=== PATIENT | female | born 1995 | race Caucasian/White ===

== ENCOUNTER → 2023-11-07 16:01 | Outpatient (CLI) | payer OTHER, SELFPAY ==
--- NOTE | 2023-11-07 16:03 | DI.US.S_ITS ---
PROCEDURE: US OB >= 14 WEEKS FETUS INDICATIONS: anatomy scan OUTSIDE/PRIOR DATING DATA: Last menstrual period (LMP): 06/16/2023. LMP-based estimated date of delivery (MANDA): 03/30/2024. First dating scan (date and location): Unknown. Estimated date of delivery (MANDA) from first dating scan: Unknown. The calculations are made using the clinical MANDA of 03/30/2024. TECHNIQUE: Real-time scanning was performed of the fetus, with image documentation and biometric measurements. COMPARISON: None. FINDINGS: General: A single living intrauterine gestation is present. Presentation: Breech. Placenta: Placental position is posterior , without previa. Amniotic fluid index: 12.0 cm, normal range is 5-24 cm. Single deepest vertical pocket is 4.2 cm. heart rate: 149 beats per minute. Maternal cervical canal: 4.4 cm long. Normal lower limit is 2.5 cm. biometrics: Biparietal diameter: 4.7 cm 20 weeks 0 days Head circumference: 17.3 cm 19 weeks 6 days Abdominal circumference: 15.7 cm 20 weeks 6 days Femur length: 3.2 cm 19 weeks 6 days Clinically estimated gestational age: 19 weeks 3 days Composite gestational age from present scan: 20 weeks 1 day Estimated weight and percentile: 344 g 90th percentile Anatomic survey: Neuro: Ventricles are non-dilated at less than 10 mm. Cisterna magna is normal at 3-11 mm. Cerebellum is normal in size and morphology. Nuchal skin fold: Normal at less than 6 mm between 14-21 weeks gestational age. Face: Nose and lips, facial profile are normal. Spine: No evidence for spina bifida. Heart: 4-chambered heart is present, with normal ventricular outflow tracts. Diaphragm: Diaphragm is intact. Stomach: Left-sided stomach is present. Kidneys: No hydronephrosis. Normal is less than 5 mm in 2nd trimester, less than 7 mm in 3rd trimester. Cord: 3-vessel cord has orthotopic insertion. Bladder: Normal in size. Extremities: All 4 extremities identified. IMPRESSION: Single live intrauterine with gestational age today of 20 weeks 1 day. Anatomy is within normal limits. We strive to produce accurate, complete, and clear reports of imaging services. To assist us in improving patient care, this report was composed using standard report templates and voice recognition software. Therefore, it may contain abnormal punctuation, insertions and/or omissions. Occasional wrong-word or sound-alike substitutions may occur. Though we review the report and make efforts to correct it, we do recommend that the report be read carefully in proper context to recognize any text inaccuracies. Dictated by: Cindy Sol M.D. on 11/08/2023 at 11:38 Approved by: Cindy Sol M.D. on 11/08/2023 at 11:40
== END ==
PROVIDERS: Referring Provider Family Medicine; Visit Provider Family Medicine
DX: Z34.82 Encounter for supervision of other normal pregnancy, second trimester (principal); Z3A.20 20 weeks gestation of pregnancy
CPT/HCPCS: 76811

== ENCOUNTER → 2023-12-24 07:21 | Outpatient (CLI) | payer OTHER, SELFPAY ==
[2023-12-24 10:27] LABS: GTT (PREG) 1 Hour PP 50gm Dose 163 mg/dL (76-139)
== END ==
PROVIDERS: Referring Provider Family Medicine; Visit Provider Family Medicine
DX: Z34.80 Encounter for supervision of other normal pregnancy, unspecified trimester (principal)
CPT/HCPCS: 36415; 82950

== ENCOUNTER → 2023-12-27 07:56 | Outpatient (CLI) | payer OTHER, SELFPAY ==
[2023-12-27 09:16] LABS: Glucose Fasting Gestational 89 mg/dL (76-95)
[2023-12-27 10:53] LABS: Glucose 1 Hour Gest 208 mg/dL (76-180)
[2023-12-27 11:15] LABS: Glucose 2 Hour Gest 160 mg/dL (76-155)
[2023-12-27 11:33] LABS: Glucose Tol Interp,Gestational INTERPRETATION
[2023-12-27 12:29] LABS: Glucose 3 Hour Gest 86 mg/dL (76-140)
== END ==
LOC: LAB 07:58
PROVIDERS: PCP Family Medicine; Referring Provider Family Medicine; Visit Provider Family Medicine
DX: Z34.80 Encounter for supervision of other normal pregnancy, unspecified trimester (principal)
CPT/HCPCS: 36415; 82951; 82952

== ENCOUNTER → 2023-12-31 13:54 | Outpatient (CLI) | payer OTHER, SELFPAY ==
--- NOTE | 2023-12-31 13:59 | DIAB.GDA ---
Initial Gestational Diabetes Assessment Name: Cynthia Booker Date: 12/31/23 Time: 2-3p Dx: Gestational Diabetes Provider: Lachelle MANDA: 03/30/24 Weeks: 27 Cynthia presents for initial GDM visit, accompanied by spouse Harshil. States Harshil does much of the cooking. No PMH of GDM. FH of T2DM with maternal grandmother. Has been checking BG and making diet changes. Reports babies on her 's side of the family are sometimes >9#. Currently measuring on MANDA per report. Diet Recall: 0a: eggs, 2 toast with PB OR 2 protein pancakes, maple syrup, and fruit 10-11a: fruit OR protein shake 12-1p: Leftovers OR 2 slices pizza with salad OR pro shake 3-5p: popcorn or tomatoes 730-8p: protein, veggies and 1-1.5 CHO (rice or potatoes) Beverages: 120oz water, liquid IV Anthropometrics: Ht: 67 Wt: 186# 12/23/23 OB visit Prepregnancy wt: 160# Physical Activity: Walking 5-6 days per week for 2-4 mi wt lifting x 2 days per week Self-Monitoring Blood Glucose: Checking FBG and 1 hour pc. All in goal with exception to 2 elevated pc dinner readings after higher CHO intake. Date Pre Post Pre Post Pre Post HS 12/26 159 12/27 81 101 122 106 12/28 69 139 106 79 12/29 84 105 108 187 12/30 83 104 88 Diabetes Medications: None Pertinent Labs: Screen 163 ; OGTT: 89, 208H, 160H, 86 Nutrition Rx: Carbohydrates: Meal: 45-g lunch and dinner; 30-45g breakfast Snack: 15-30g Nutrition Diagnosis: Altered nutrition related lab value r/t GDM dx aeb recent OGTT Food and nutrition related knowledge deficit r/t newly dx with GDM aeb OGTT and diet recall Intervention: This participant was very receptive. Provided appropriate educational handouts. Discussed the following topics: GDM pathophysiology and impact of hyperglycemia on mom and baby Risk for T2DM for mom and baby in the future Ways to reduce risk T2DM Plate Method, meal timing, carb counting, pairing macronutrients and spreading out CHO for better BG management Blood glucose goals (FBG: <95 and 1 hour <140 mg/dL or 2 hour <120 mg/dl); importance of checking 4x per day (FBG and pc) Impact of macronutrients on blood glucose Recommended servings for carbohydrates at meals and snacks Brainstormed appropriate meal plan based on her food preferences Role of physical activity and following provider guidelines for safety Goals: Pair CHO and protein at meals/snacks Try to keep rice to 1c Follow-up: MARY FLORES follow-up in 2 weeks 1:1 and send BG to RD in 1 week Milady Marie RDN, MARK Certified Diabetes Care and Traffic Control Signaler T: [phone] F: [phone] [email or web address] Thank you for this referral
== END ==
LOC: DIET 13:54
PROVIDERS: PCP Family Medicine; Referring Provider Family Medicine
DX: O24.419 Gestational diabetes mellitus in pregnancy, unspecified control (principal); Z3A.27 27 weeks gestation of pregnancy; Z71.3 Dietary counseling and surveillance
CPT/HCPCS: 97802

== ENCOUNTER 2024-01-07 16:48 | Outpatient (CLI) | payer OTHER, SELFPAY | END 2024-01-07 17:50 | disposition home or self-care (01) | LOC: OB 01-08 09:21 | PROVIDERS: Referring Provider Family Medicine; Visit Provider Family Medicine | DX: O36.8130 Decreased fetal movements, third trimester, not applicable or unspecified (principal); Z3A.28 28 weeks gestation of pregnancy | CPT/HCPCS: 59025; G0378; G0379 ==

== ENCOUNTER → 2024-01-15 14:00 | Outpatient (CLI) | payer OTHER, SELFPAY ==
--- NOTE | 2024-01-23 10:59 | DIAB.GDFU ---
Follow-up Gestational Diabetes Assessment Name: Cynthia Booker Date: 01/15/24 Time: 220-3p Dx: Gestational Diabetes Provider: Lachelle MANDA: 03/30/24 Weeks: 29 Cynthia presents for GDM visit.. Reports overall diet and BG are going well. Some constipation with lower carb/fiber diet. Some days below AMUSEMENT RIDE INSPECTOR for CHO intake for , which is reflected in postprandial readings under 100mg/dl at times. Cynthia has been documenting diet and BG in journal. Reviewed this today. Anthropometrics: Ht: 67 Wt: 187# 01/09/24 OB visit 186# 12/23/23 OB visit Prepregnancy wt: 160# Physical Activity: Walking 5-6 days per week for 1-3 mi. Less wt lifting lately. Self-Monitoring Blood Glucose: Checking FBG and 1 hour pc. All FBG in goal. 3 total elevated pc readings, but most in goal and even lower than ADA recs of pc 1 hour readings 110-140mg/dl. Lower readings seem to correlated with meals <30g CHO. Date Pre Post Pre Post Pre Post HS 01/08 85 125 149 90 01/09 87 72 146 84 01/10 76 154 74 94 01/11 75 128 99 88 01/12 85 120 114 83 01/13 76 97 87 98 01/14 81 93 Diabetes Medications: None Pertinent Labs: Screen 163 ; OGTT: 89, 208H, 160H, 86 Nutrition Rx: Carbohydrates: Meal: 45-g lunch and dinner; 30-45g breakfast Snack: 15-30g Nutrition Diagnosis: Altered nutrition related lab value r/t GDM dx aeb recent OGTT Food and nutrition related knowledge deficit r/t newly dx with GDM aeb OGTT and diet recall - improved/in progress Inadequate CHO intake for r/t avoiding CHO at some meals due to fear of elevations aeb diet journal indicating meals under 30g CHO. Intervention: This participant was very receptive. Provided appropriate educational handouts. Discussed the following topics: Blood glucose goals (FBG: <95 and 1 hour 110-140 mg/dL or 2 hour 100-120 mg/dl per ADA guidelines) Recommended servings for carbohydrates at meals and snacks review Role of physical activity and following provider guidelines for safety Constipation MNT : fiber, fluids and movement Foods higher in fiber Goals: Pair CHO and protein at meals/snacks- met Try to keep rice to 1c- met Aim for Nutrition Rx at meals- new Add berries - new Add nuts and PB to diet for added fiber- new Follow-up: MARY FLORES follow-up in 2 weeks Milady Marie RDN, MARK Certified Diabetes Care and Rack Room Worker T: [phone] F: [phone] [email or web address] Thank you for this referral
== END ==
PROVIDERS: PCP Family Medicine; Referring Provider Family Medicine
DX: O24.419 Gestational diabetes mellitus in pregnancy, unspecified control (principal); Z3A.29 29 weeks gestation of pregnancy; Z71.3 Dietary counseling and surveillance
CPT/HCPCS: 97803

== ENCOUNTER → 2024-01-30 16:10 | Outpatient (CLI) | payer OTHER, SELFPAY ==
--- NOTE | 2024-01-30 17:19 | DIAB.GDFU ---
Follow-up Gestational Diabetes Assessment Name: Cynthia Booker Date: 01/30/24 Time: 410-445p Dx: Gestational Diabetes Provider: Lachelle MANDA: 03/30/24 Weeks: 31 Cynthia presents for GDM visit, accompanied by Harshil. Reviewed her food journal. Some meals still low in CHO, but most improved with added higher fiber CHO. Did have two elevated FBG that she attributes to poor sleep and perhaps stress with family in town. Reports walking, stretching, and getting outside can help with stress for her. Constipation improved with more fiber, though BM still q other day. Endorses adequate water and movement. Adding more high fiber foods. Has low CHO yogurt that could add fruit for additional fiber. Anthropometrics: Ht: 67 Wt: 184# 01/20/24 OB visit 187# 01/09/24 OB visit 186# 12/23/23 OB visit Prepregnancy wt: 160# Physical Activity: Walking 5-6 days per week for 1-2 mi. Self-Monitoring Blood Glucose: Checking FBG and 1 hour pc. 2 elevated FBG after poor sleep per report. One elevated pc reading over the last week after higher CHO intake. One 59mg/dl after meal of just protein shake and cashews. Has questions about when medication would be indicated. Date Pre Post Pre Post Pre Post HS 01/23 69 89 120 150 01/24 97 92 114 116 01/25 90 119 59 94 01/26 102 129 121 138 01/27 85 109 114 138 01/28 89 106 109 2h 99 01/29 87 123 92 Diabetes Medications: None Pertinent Labs: Screen 163 ; OGTT: 89, 208H, 160H, 86 Nutrition Rx: Carbohydrates: Meal: 45-g lunch and dinner; 30-45g breakfast Snack: 15-30g Nutrition Diagnosis: Altered nutrition related lab value r/t GDM dx aeb recent OGTT Food and nutrition related knowledge deficit r/t newly dx with GDM aeb OGTT and diet recall - improved Inadequate CHO intake for r/t avoiding CHO at some meals due to fear of elevations aeb diet journal indicating meals under 30g CHO- improved Intervention: This participant was very receptive. Provided appropriate educational handouts. Discussed the following topics: Review of constipation MNT Sleep impact on FBG When medication might be indicated, if FBG show trends of elevations for example Stress management and impact on BG Goals: Aim for Nutrition Rx at meals- met Add berries - met Add nuts and PB to diet for added fiber- met Work on sleep hygiene- new Add berries to low CHO yogurt- new Message BG in one week- new Follow-up: MARY FLORES follow-up in one week via messaging and 2 weeks in 1:1 Milady Marie RDN, MARK Certified Diabetes Care and Extension Course Coordinator T: [phone] F: [phone] [email or web address] Thank you for this referral
== END ==
LOC: DIET 16:10
PROVIDERS: Referring Provider Family Medicine
DX: O24.419 Gestational diabetes mellitus in pregnancy, unspecified control (principal); Z3A.31 31 weeks gestation of pregnancy; Z71.3 Dietary counseling and surveillance
CPT/HCPCS: 97803

== ENCOUNTER → 2024-02-14 09:58 | Outpatient (CLI) | payer OTHER, SELFPAY ==
--- NOTE | 2024-02-14 10:00 | DIAB.GDFU ---
Follow-up Gestational Diabetes Assessment Name: Cynthia Booker Date: 02/14/24 Time: a Dx: Gestational Diabetes Provider: Lachelle MANDA: 03/30/24 Weeks: 33-34 Cynthia presents for GDM visit virtually using [facility]. OB visit next week on Saturday. Has been working on sleep hygiene. Reduced evening screen time. Adding in short walk after dinner. Stretching at night and added night time routine. Still difficulty staying asleep. Has questions about when insulin may be indicated. Has questions if growth scan plays a role in deciding. Reviewed main indication would be elevated BG, though gestation size and AFV may contribute. May not need insulin therapy at this time, but will continue to monitor. Added berries to diet, as discussed last visit. Choosing whole grains for extra fiber. Constipation improved. BM q other day. Aiming for 30g at B, 45g at lunch and dinner, 15g at snacks. Some meals seem below recs for . Ok to increase snacks to 30g with protein added. Reviewed food journal. Anthropometrics: Ht: 67 Wt: 185# 02/03/24 at OB visit 184# 01/20/24 187# 01/09/24 186# 12/23/23 Prepregnancy wt: 160# Physical Activity: Walking everyday 1-2 mi hill walk or 2-3 flat walk. Self-Monitoring Blood Glucose: Checking FBG and 1 hour pc. Had three slightly elevated FBG last week and one notable above 100 mg/dl this week. May consider HS NPH insulin if FBG continue to increase. FBG elevations seem r/t difficulty with sleep, which is consistent with this stage of . RD/MARK messaged OB provider. She will see her on Saturday for their regular appt. 03/04-03/09: Fastings: 69, 90, 84, 96, 96, 96 mg/dl Date Pre Post Pre Post Pre Post HS 02/07 95 115 96 129 / 84 120 132 129 9/2 86 113 119 133 9/3 82 102 103 164 / 90 95 120 9/5 101 106 133 127 9/6 87 Diabetes Medications: None Pertinent Labs: Screen 163 ; OGTT: 89, 208H, 160H, 86 Nutrition Rx: Carbohydrates: Meal: 45-g lunch and dinner; 30-45g breakfast Snack: 30g Nutrition Diagnosis: Altered nutrition related lab value r/t GDM dx aeb recent OGTT Inadequate CHO intake for r/t avoiding CHO at some meals due to fear of elevations aeb diet journal indicating meals under 30g CHO- improved Intervention: This participant was very receptive. Provided appropriate educational handouts. Discussed the following topics: Reviewed BG trends Discussed indications for insulin, mostly BG trends Role of gestation size and AFV in GDM management Review of nutrition recs during Discussion on sleep hygiene, what she can/cannot control Physical activity plans/progress Constipation MNT review Goals: Work on sleep hygiene- met Add berries to low CHO yogurt- met Message BG in one week- met Aim for 30g CHO at snacks- new Message RD in one week BG - new Follow-up: MARY FLORES follow-up in one week messaging BG and 2 weeks for 1:1 in person. Overall, BG going well. If FBG continue to be elevated would rec consideration for NPH HS (if 3 or more elevated FBG). Will continue to monitor. Messaged OB update on BG this week. Milady Marie RDN, JAVONES Certified Diabetes Care and Medical Physics Teacher T: [phone] F: [phone] [email or web address] Thank you for this referral
== END ==
LOC: DIET 10:00
PROVIDERS: Referring Provider Family Medicine
DX: O24.419 Gestational diabetes mellitus in pregnancy, unspecified control (principal); Z3A.33 33 weeks gestation of pregnancy; Z71.3 Dietary counseling and surveillance
CPT/HCPCS: 97803

== ENCOUNTER → 2024-02-28 08:54 | Outpatient (CLI) | payer OTHER, SELFPAY ==
--- NOTE | 2024-02-28 13:33 | DIAB.GDFU ---
Follow-up Gestational Diabetes Assessment Name: Cynthia Booker Date: 02/28/24 Time: 220-561d Dx: Gestational Diabetes Provider: Lachelle MANDA: 03/30/24 Weeks: 35-36 Cynthia presents for GDM visit virtually using [facility]. OB visit next week on Saturday. US growth appt next week as well. Continues to follow nutrition guidelines. Continues to work on sleep hygiene. States taking sleep aid medication rx'd by OB provider is helpful. Poor sleep seems to directly impact FBG. On FBG mornings when elevated, states those are often nights when she wakes at 3a and difficulty falling back to sleep. Implementing nighttime routine, ie reading, no screens, stretches, and walking earlier in the day. Has increased snacks to 30g as discussed last visit. Feels this gives her more energy during the day. Worried about 1-2 elevations in FBG numbers over the last couple weeks. Anthropometrics: Ht: 67 Wt: 189# 02/17/24 at OB visit 185# 02/03/24 184# 01/20/24 187# 01/09/24 186# 12/23/23 Prepregnancy wt: 160# Physical Activity: Walking everyday 1-2 mi hill walk or 2-3 flat walk. Self-Monitoring Blood Glucose: Checking FBG and 1 hour pc. 07/17 elevated FBG. All pc readings this week were in goal. Date Pre Post Pre Post Pre Post HS 02/21 83 138 76 117 02/22 81 110 112 92 02/23 98 118 112 120 02/24 91 95 117 103 2h 02/25 81 95 114 129 02/26 105 111 111 102 02/27 88 Diabetes Medications: None Pertinent Labs: Screen 163 ; OGTT: 89, 208H, 160H, 86 Nutrition Rx: Carbohydrates: Meal: 45-g lunch and dinner; 30-45g breakfast Snack: 30g Nutrition Diagnosis: Altered nutrition related lab value r/t GDM dx aeb recent OGTT Intervention: This participant was very receptive. Provided appropriate educational handouts. Discussed the following topics: Reviewed BG trends Discussed indications for insulin, mostly BG trends Role of gestation size and AFV in GDM management Physical activity plans/progress Review of macronutrient recommendations during Benefits, resources, and nutrition for recommendations for nutrition and physical activity recommendations for T2DM risk reduction OGTT at 6-12 weeks Checking blood sugars twice per week (goal: fasting <100 mg/dL and 2 hour pc <140 mg/dL) until 6 week check-up HgA1c q 1-3 years. Goals: Aim for 30g CHO at snacks- met Message RD in one week BG - met Complete OGTT - new Complete HgA1c q 1-3 years - new Follow-up: MARY FLORES follow-up in prn. Will update OB on BG trends. Milady Marie RDN, MARK Certified Diabetes Care and Drama Professor T: [phone] F: [phone] [email or web address] Thank you for this referral
== END ==
LOC: DIET 08:55
PROVIDERS: Referring Provider Family Medicine
DX: O24.419 Gestational diabetes mellitus in pregnancy, unspecified control (principal); Z3A.35 35 weeks gestation of pregnancy; Z71.3 Dietary counseling and surveillance
CPT/HCPCS: G0109

== ENCOUNTER → 2024-03-02 14:10 | Outpatient (CLI) | payer OTHER, SELFPAY ==
--- NOTE | 2024-03-02 14:30 | DI.US.S_ITS ---
PROCEDURE: US OB FOLLOW UP INDICATIONS: GDM; EFW OUTSIDE/PRIOR DATING DATA: Last menstrual period (LMP): 06/16/2023 LMP-based estimated date of delivery (MANDA): 03/30/2024 First dating scan (date and location): 10/28/2023 (exam not available) Working MANDA is 03/30/2024. TECHNIQUE: Real-time scanning was performed of the fetus, with image documentation and biometric measurements. Endovaginal scanning: Not performed. COMPARISON: [facility], OB >= 14 WEEKS FETUS, 11/07/2023, 16:32. FINDINGS: General: A single living intrauterine gestation is present. Presentation: Vertex Placenta: Placental position is fundal, without previa. Amniotic fluid index: 10.4 cm, normal range is 5-24 cm. Single deepest vertical pocket is 3.6 cm. heart rate: 132 beats per minute. Maternal cervical canal: Not well visualized biometrics: Biparietal diameter: 9.3 cm, 37 weeks 6 days Head circumference: 33.4 cm, 38 weeks 1 day Abdominal circumference: 33.8 cm, 37 weeks 5 days Femur length: 7.3 cm, 37 weeks 2 days Clinically estimated gestational age: 36 weeks 0 days Composite gestational age from present scan: 37 weeks 5 days Estimated weight and percentile: 3270 g, 90th percentile Other: Not applicable. IMPRESSION: 1. Single live intrauterine . 2. Estimated weight is at the 90th percentile for gestational age. 3. Amniotic fluid index is normal at 10.4 cm. Approved by: Justin Rucker M.D. on 03/02/2024 at 21:18
== END ==
LOC: US 14:11
PROVIDERS: Referring Provider Family Medicine; Visit Provider Family Medicine
DX: O24.419 Gestational diabetes mellitus in pregnancy, unspecified control (principal); Z3A.37 37 weeks gestation of pregnancy
CPT/HCPCS: 76816

== ENCOUNTER → 2024-03-02 17:07 | Outpatient (CLI) | payer OTHER, SELFPAY ==
[2024-03-03 15:51] LABS: Strep Grp B PCR NEG for Grp B Strep
== END ==
PROVIDERS: Visit Provider Family Medicine
DX: Z34.80 Encounter for supervision of other normal pregnancy, unspecified trimester (principal)
CPT/HCPCS: 76816; 87653

== ENCOUNTER → 2024-03-09 17:02 | Outpatient (CLI) | payer OTHER, SELFPAY | PROVIDERS: Visit Provider Family Medicine | DX: Z34.80 Encounter for supervision of other normal pregnancy, unspecified trimester (principal) | CPT/HCPCS: 87210 ==

== ENCOUNTER 2024-04-01 12:11 | Inpatient (IN) | payer OTHER, SELFPAY ==
[2024-04-01] MEDS: LACTATED RINGERS 1,000 ML 100 ML IV (13:10)
[2024-04-01 13:18] VITALS: BP 122/78
[2024-04-01 13:25] LABS: Add Manual Diff / Slide Review NO; Basophils Absolute Auto 0 /uL (0-100); Basophils Percent Auto 0.3 % (0-2); Eosinophils Absolute Auto 0 /uL (0-450); Hematocrit 42.3 % (36-46); Lymphocytes Absolute Auto 900 /uL (1100-4500); Lymphocytes Percent Auto 7.4 % (25-40); Mean Corpuscular HGB Conc 33.2 % (30-36); Mean Corpuscular Hemoglobin 29.8 PG (26-34); Mean Corpuscular Volume 89.8 fL (80-100); Monocytes Absolute Auto 600 /uL (0-900); Neutrophils Absolute Auto 10800 /uL (1500-7000); Neutrophils Percent Auto 87.3 % (50-75); Platelet Count 249 X10^3/uL (150-400); Red Blood Cell Count 4.71 X10^6/uL (4.0-5.2); Red Cell Distribution Width 13.7 % (11.6-14.8); White Blood Cell Count 12.3 X10^3/uL (4.5-11.0)
[2024-04-01 13:51] LABS: COVID19 -Nasal RAPID Negative (Negative)
[2024-04-01] MEDS: FENT 2MCG/ML BUPIV 0.125% EPI 200 MCG/100 ML PLAST..BAG 8 MCG EPIDURAL ×2 (14:11→19:21)
--- NOTE | 2024-04-01 14:20 | PM.AN.REGBLK ---
Regional Block Pre-procedure Procedure: Continuous Lumbar Epidural for L&D Attending OB provider: Fatou Larose PMH/ROS narrative: presenting with PMH gestational diabetes (diet controlled), newly diagnosed CHASIDY in third trimester (not using CPAP), and active sinus infection x 12days (on augmentin x 3 days) requesting NATACHA for labor pain. PSH/Anesthesia history narrative: See pre-anesthesia evaluation form. Exam narrative: See pre-anesthesia evaluation form. ASA Class: III Labs: Hct 42.3 % (36-46) 04/01/24 12:45 Plt Count 249 X10^3/uL (150-400) 04/01/24 12:45 Medications: Current Medications Generic Name Dose Route Start Last Admin Trade Name Freq PRN Reason Stop Dose Admin Calcium Carbonate 1,000 mg 04/01/24 12:35 Calcium Carbonate 500 Mg Tab PO Q2HR PRN Dyspepsia Carboprost Tromethamine 250 mcg 04/01/24 12:35 Carboprost 250 Mcg/Ml Ampul IM Q90M PRN Bleeding Diphenhydramine HCl 25 mg 04/01/24 14:18 Diphenhydramine 50 Mg/Ml Vial IV 04/02/24 14:18 Q3HR PRN PRURITUS Oxytocin/Lactated Ringer's 30 unit in 500 mls @ 200 mls/hr 04/01/24 12:35 Oxytocin Premix IV CONT PRN Bleeding Protocol Tranexamic Acid 1,000 mg/ 100 mls @ 600 mls/hr 04/01/24 12:35 Sodium Chloride IV NOW PRN Bleeding Oxytocin/Lactated Ringer's 30 unit in 500 mls @ 2 mls/hr 04/01/24 12:45 Oxytocin Premix IV TITRATE CAMILLE Protocol 2 MILLIUNIT/MIN Lactated Ringer's 1,000 mls @ 100 mls/hr 04/01/24 12:45 Lactated Ringers IV 04/01/24 22:44 CONT CAMILLE Sodium Chloride 1,000 mls @ 100 mls/hr 04/01/24 14:30 Normal Saline 0.9% IV 04/02/24 14:18 CONT CAMILLE Lidocaine HCl 20 ml 04/01/24 12:35 Lidocaine 1% 20 Ml INJ INTRA-OP PRN Post Delivery Methylergonovine Maleate 0.2 mg 04/01/24 12:35 Methylergonovine 0.2 Mg Tablet PO Q6HR PRN Heavy Bleeding Methylergonovine Maleate 0.2 mg 04/01/24 12:35 Methylergonovine 0.2 Mg/Ml Vial IM NOW PRN Bleeding Metoclopramide HCl 10 mg 04/01/24 14:18 Metoclopramide 10 Mg/2 Ml Inj IV 04/02/24 14:18 Q4H PRN Nausea Mineral Oil 30 ml 04/01/24 12:35 Mineral Oil 30 Ml Udc TOP PRN PRN Version Misoprostol 800 mcg 04/01/24 12:35 Misoprostol 200 Mcg Tablet IL NOW PRN Bleeding Misoprostol 400 mcg 04/01/24 12:35 Misoprostol 200 Mcg Tablet SL NOW PRN Bleeding Naloxone HCl 0.2 mg 04/01/24 12:35 Naloxone 0.4 Mg/Ml Vial IV Q2MIN PRN Opiate Reversal Naloxone HCl 0.4 mg 04/01/24 14:18 Naloxone 0.4 Mg/Ml Vial IV Q2MIN PRN Opiate Reversal Ondansetron HCl 4 mg 04/01/24 12:35 Ondansetron 4 Mg/2 Ml Inj IV Q4HR PRN Nausea And Vomiting Ondansetron HCl 4 mg 04/01/24 17:00 Ondansetron 4 Mg/2 Ml Inj IV 04/01/24 21:01 Q4HR CAMILLE Oxytocin 10 unit 04/01/24 12:35 Oxytocin 10 Unit/Ml Vial IM NOW PRN Bleeding Allergies: Allergies Allergy/AdvReac Type Severity Reaction Status Date / Time Sulfa (Sulfonamide Allergy Mild Hives Verified 03/30/24 16:40 Antibiotics) [SULFA (SULFONAMIDE ANTIBIOTICS)] Procedure Insertion date: 04/01/24 Insertion time: 14:01 Prep/Local: 1% lidocaine (3mL to interspace (CHG used for skin prep)) Interspace: L3/4 Patient position: sitting Needle: 18 gauge Hustead Loss of resistance with: saline RON at (cm): 5 (5.5) Catheter placed at SKIN (cm): 12 Catheter in SPACE (cm): 7 (6.5) Insertion: No CSF, No Blood, No Paresthesia with insertion, No Paresthesia with injection and No Test dose reaction Initial Medications TEST DOSE time: 14:02 TEST DOSE: 1.5% lidocaine with epinephrine 1:200k (mL): 3 BOLUS DOSE time: 14:11 BOLUS DOSE (mL): 8 BOLUS DOSE med: other (infusate @ 1411 & remainder of test dose (2mL) at 1405) Infusion INFUSION: 0.125% bupivacaine and with fentanyl 2 mcg/mL Initial rate (mL/hr): 8 Subsequent interventions: 1950: Pt dialated to 9.5 in [place]'s. Notified anesthesia will be unavailable due to urgent OR case for approximately 1 hour. Increased rate to 12mL/hr on pump. Post-procedure Anesthesia date START: 04/01/24 Anesthesia time START: 13:56 Anesthesia date END: 04/01/24 Anesthesia time END: 21:51 Post-procedure Anesthesia Assessment: Yes CV function: HR/BP stable, Yes Resp function: RR/sat/airway adequate, Yes Post-op hydration adequate, Yes Pain control adequate, Yes Nausea & vomiting absent, Yes Temperature > 36 C, Yes Mental status appropriate and No Anesthesia complications
--- NOTE | 2024-04-01 15:39 | P.HPOB_ITS ---
OB HPI Date/Time Date of admission: 04/01/24 Date Patient Seen: 04/01/24 Time Patient Seen: 03:30 History of Present Condition Chief complaint: EVAL OF LABOR MANDA Calculator 2 Estimated Delivery Date Method Current WG Current Estimate 03/30/24 LMP (Certain) 40w 2d : 2 Para: 0 Narrative: This is a at 40w2d with painful contractions for the past hour. No LOF, good movement, no vaginal bleeding. complicated by GDMA1. Currently has sinus infection on antibiotics. care: good care Dating criteria OB: LMP confirmed by 2nd trimester US Ultrasounds: normal mid trimester US Obstetrical complications: gestational diabetes Medical complications OB: none Preadmission Labs Last OB Lab Results: 2 Blood Type A Positive 04/01/24 12:45 Antibody Screen Negative 04/01/24 12:45 Hct 42.3 % (36-46) 04/01/24 12:45 Hgb 14.0 g/dL (12.0-16.0) 04/01/24 12:45 Glucose 1 Hr 50 gm 163 mg/dL (76-139) H 12/24/23 08:40 Group B Strep (PCR) Neg for grp b strep 03/02/24 17:09 Genetic Screens: Cell-free DNA: Normal Prior (ies) Past Pregnancies Del. Date GA/Weeks Labor Lgth Wt Sex Route Outcome Anesthesia Place Delv Breastfeed Preg Comp Name 09/08/22 10 spontaneous Delivery Date: 09/08/22 Last Updated by: Dee Mora RN conceived w/ IUD which was removed ~6 wk, missed AB ~10wk required D&C Evaluation Evaluation Baseline heart rate: 145 Variability: Average (6-10) monitor accelerations: Present Monitor Decelerations: Absent Contraction Frequency (minutes): 4 Uterine Contraction Intensity: Moderate Category of Tracing: Reactive Status: Category l Dilation (cm): 5 Effacement (%): 100 Dilation: >/=5 cm Effacement: >/=80% station: 0 Position of cervix: mid Consistency: soft Banda score: 11 [facility] Medical History (Updated 03/30/24 @ 17:14 by Stacey Arzola MD) Gestational diabetes Fibroadenoma of left breast complicated by intrauterine device (IUD) (~06/2022) Surgical History (Updated 12/01/23 @ 20:11 by Syeda Aviles) Anesthesia [place] teeth extracted (~2013) History of tonsillectomy and adenoidectomy (~1999) History of breast biopsy History of dilation and curettage (~07/2022) Family History (Updated 12/01/23 @ 20:13 by Syeda Aviles) Mother Breast cancer Grandfather Melanoma Stroke Cancer Grandmother Diabetes mellitus ALS (amyotrophic lateral sclerosis) Father Prostate cancer Grandmother No problems noted. Grandfather Alcoholism Liver failure Social History marital status: number of children: 0 household members: spouse lives independently: Yes caregiver/support person: No housing: house pets and animals: Yes (dogs) education level: master's degree occupational status: employed current occupational exposures/hazards: No special aura needs: No travel history: recent seatbelt use: always helmet use: Yes water heater temp set < 120 deg: Yes working smoke detector in home: Yes fire extinguisher in home: Yes carbon monox detector in home: Yes firearms in home: Yes firearms unloaded and locked: Yes do you feel safe at home: Yes Smoking Status: Never smoker second hand exposure: No alcohol intake: former substance use type: does not use during the past year weight has: remained stable well-balanced diet: daily or most days daily servings fruits/ve or more times/day caffeine: No Type(s) of exercise: walking Meds Home Medications and Allergies Home Medications Medication Instructions Recorded Confirmed Type Bacillus coagulans 250 million 2 cell PO PRN PRN gut health 10/15/23 04/01/24 History cell chewable tablet (Digestive Advantage Probiotic Gummy) docusate sodium 100 mg capsule 100 mg PO DAILY 10/15/23 04/01/24 History magnesium carb,citrate,oxide See Rx Instructions .Route .COMPLEX 10/15/23 04/01/24 History (Magnesium Complex) polyethylene glycol 3350 17 17 g PO DAILY 10/15/23 04/01/24 History gram/dose oral powder (Miralax) vitamin-ferrous sulfate See Rx Instructions .Route .COMPLEX 10/15/23 04/01/24 History 27 mg iron-folic acid 0.8 mg tablet ondansetron 8 mg disintegrating 8 mg PO 3XD 10/28/23 04/01/24 History tablet glucometer #1 ea 12/27/23 04/01/24 Rx sharps container #1 ea 12/27/23 04/01/24 Rx glucose test strips #240 ea 02/12/24 04/01/24 Rx hydroxyzine pamoate 25 mg capsule 25 mg PO BEDTIME PRN for anxiety 03/16/24 04/01/24 Rx (Vistaril) #30 caps lancet #240 ea 03/17/24 04/01/24 Rx amoxicillin 875 mg-potassium 1 tab PO BID #14 tabs 03/30/24 04/01/24 Rx clavulanate 125 mg tablet Allergies Allergy/AdvReac Type Severity Reaction Status Date / Time Sulfa (Sulfonamide Allergy Mild Hives Verified 03/30/24 16:40 Antibiotics) [SULFA (SULFONAMIDE ANTIBIOTICS)] Review of Systems Review of Systems ROS: Yes All systems reviewed with the patient and are negative except as otherwise documented Objective Labs 04/01/24 12:45 Labs: Laboratory Results - last 24 hr 04/01/24 04/01/24 04/01/24 12:45 12:55 12:55 WBC 12.3 H RBC 4.71 Hgb 14.0 Hct 42.3 MCV 89.8 MCH 29.8 MCHC 33.2 RDW 13.7 Plt Count 249 Neut % (Auto) 87.3 H Lymph % (Auto) 7.4 L Lamb % (Auto) 5.0 Eos % (Auto) 0.0 L Baso % (Auto) 0.3 Neut # (Auto) 49687 H Lymph # (Auto) 900 L Lamb # (Auto) 600 Eos # (Auto) 0 Baso # (Auto) 0 SARS-CoV-2 (PCR) Cancelled Negative Blood Type A Positive Antibody Screen Negative Assessment and Plan Assessment and Plan Assessment and Plan narrative: 28 yo at 40w2d admitted in spontaneous labor. complicated by GDMA1. GBS negative. Current sinus infection - COVID negative. Epidural in place. EFW 03/02 3270 grams, 90th percentile. -AROM at 3:40pm, mec stained fluid -pitocin if needed -continue antibiotics for sinus infection, robitussin DM ordered as well -blood sugars every 4 hours in latent, 2 hrs in active, and 1 hr while pushing -plan for Time-Based Coding :: 30 minutes spent with patient and on the chart (including review of chart, obtaining history, exam, reviewing outside data, placing orders, documenting exam and treatment plan, and counseling patient) on 04/01.
[2024-04-01] MEDS: guaiFENesin Solution 100 MG/5 ML UDC 200 MG PO (15:52)
[2024-04-01] MEDS: OXYTOCIN PREMIX 30 UNIT/500 ML PLAST..BAG IV (16:21)
[2024-04-01] MEDS: GUAIFENESIN/DM 200/20 MG/10 ML UDC PO (20:00)
--- NOTE | 2024-04-01 22:43 | PM.OBPRVD ---
Events: Gestational Diabetes Labor & Delivery Delivery date: 04/01/24 Intrapartal Events: None Cervical ripening method: none Induction method: per pitocin protocol Delivery monitor: external FHT Route of delivery: L&D Laceration Description: Perineal - 2nd Degree Delivery repair: vicryl Estimated blood loss (mL): 200 Narrative: With ongoing pushing efforts, patient delivered a viable male in OA position. FHTs were reassuring throughout pushing efforts. Patient elected to have delayed cord clamping for 10 minutes. After cord was clamped, with gentle traction placenta was delivered. Pitocin bolus was started. Minimal bleeding. Uterus was firm. Second degree perineal lac repaired with suture. Plan for aftercare: Routine care
[2024-04-02] MEDS: WITCH HAZEL/GLYCERIN PADS 1 EACH TOP (00:25)
[2024-04-02] MEDS: DERMOPLAST SPRAY 20% 60 ML 1 SPRAY TOP (00:25)
[2024-04-02] MEDS: GUAIFENESIN/DM 200/20 MG/10 ML UDC PO ×2 (01:12→08:07)
[2024-04-02] MEDS: guaiFENesin Solution 100 MG/5 ML UDC 200 MG PO (01:15)
[2024-04-02] MEDS: ACETAMINOPHEN 325 MG TABLET 650 MG PO ×2 (08:06→16:22)
[2024-04-02] MEDS: IBUPROFEN 600 MG TABLET PO ×2 (08:07→16:22)
[2024-04-02] MEDS: DOCUSATE 100 MG CAPSULE PO (09:42)
[2024-04-02] MEDS: FERROUS SULFATE 325 MG TABLET PO (09:43)
[2024-04-02] MEDS: polyethylene glycoL 3350 17 GM POWD.PACK PO (09:43)
[2024-04-02] MEDS: PRENATAL VIT,CALC/IRON/FOLIC 1 TABLET 1 TAB PO (09:43)
--- NOTE | 2024-04-02 16:25 | P.DS_ITS ---
Discharge Providers Provider Date of admission: 04/01/24 12:11 Discharge Date: 04/02/24 Primary care physician: Fatou Larose MD Consults: 04/01/24 12:35 Consult to Anesthesiology Urgent Comment: Consulting Provider: Anesthesiologist Reason for consultation: Epidural Has provider been notified: No 04/02/24 22:37 Consult to Process Mold Technician Routine Comment: Discharge provider: Stacey Arzola MD Summary Hospital Course Date Patient Seen: 04/02/24 Time Patient Seen: 12:00 Diagnoses: term , spontaneous vaginal delivery Hospital Course: 28 yo G2 now P1 who presented in active labor at 40w2d. complicated by GDMA1. Progressed with pitocin. Tolerated labor with epidural. with 2nd laceration repaired with suture. Recovered well. without difficulty. Pain controlled. Bleeding wnl. Peripartum Data Infant Delivery Method: Natural Vaginal Laceration Description: Perineal - 2nd Degree complications: none Status at Discharge Cognitive/behavioral status at discharge: oriented Functional status at discharge: independent ambulation Time Spent with Patient Time attestation: Total time spent providing and/or coordinating discharge services: Time spent: Greater than 30 minutes Objective Labs 04/01/24 12:45 Exam Narrative Exam Narrative: NAD, uterus firm at fundus. Breathing easily. Discharge Plan Discharge Plan Patient Disposition: Home Discharge orders & Medications Prescriptions: New acetaminophen 325 mg Tablet 650 mg PO Q6HR PRN (Reason: Pain, Mild (1-3)) 7 Days Qty: 60 0RF ibuprofen 600 mg Tablet 600 mg PO Q6HR PRN (Reason: Pain, Mild (1-3)) 7 Days Qty: 60 0RF Continued ondansetron 8 mg tablet,disintegrating 8 mg PO 3XD hydroxyzine pamoate [Vistaril] 25 mg capsule 25 mg PO BEDTIME PRN (Reason: for anxiety ) Qty: 30 0RF amoxicillin-pot clavulanate 875-125 mg tablet 1 tab PO BID Qty: 14 0RF (DME) sharps container See Rx Instructions .ROUTE .MEDSUPPLY Qty: 1 1RF Rx Instructions: for glucose supplies (DME) glucometer See Rx Instructions .Route .MEDSUPPLY Qty: 1 0RF Rx Instructions: test blood sugars 4 (DME) glucose test strips See Rx Instructions .ROUTE .MEDSUPPLY Qty: 240 4RF Rx Instructions: to test 4 times daily (DME) lancet See Rx Instructions .ROUTE .MEDSUPPLY Qty: 240 2RF Rx Instructions: to test glucose 4 times daily vit-ferrous sulfat-FA 27 mg iron- 0.8 mg tablet See Rx Instructions .ROUTE .COMPLEX Rx Instructions: per provider order Magnesium Complex 300 mg magnesium tablet See Rx Instructions .ROUTE .COMPLEX Rx Instructions: per provider order docusate sodium 100 mg capsule 100 mg PO DAILY Digestive Advantage Prob Gummy 250 million cell tablet,chewable 2 cell PO PRN PRN (Reason: gut health ) Rx Instructions: per provider order polyethylene glycol 3350 [Miralax] 17 gram/dose powder 17 g PO DAILY Follow up/Referrals: Fatou Larose MD [Primary Care Provider] - 05/11/24 11:00 am (Please follow up w/ Dr. Larose for your 6 week appointment on Saturday05/11/24 @11:00 am. Please check in @10:45!) Visit Report/Discharge Packet Instructions: Depression, Hemorrhage Stand Alone Forms: Discharge: Care, Patient Portal/API, Stroke Signs & Symptoms Discharge Data Primary Care Provider: Fatou Larose
== END 2024-04-02 19:30 | disposition home or self-care (01) | DRG 807 ==
PROVIDERS: Admitting Provider Family Medicine; PCP Family Medicine; Referring Provider Family Medicine; Visit Provider Family Medicine
DX: O24.420 Gestational diabetes mellitus in childbirth, diet controlled (principal); Z37.0 Single live birth; O70.1 Second degree perineal laceration during delivery; Z3A.40 40 weeks gestation of pregnancy
CPT/HCPCS: 36415; 59050; 85025; 86850; 86900; 86901; 87635; G0379; J2590

== ENCOUNTER 2024-04-04 17:47 | Emergency (ER) | payer OTHER, SELFPAY ==
[2024-04-04 17:52] VITALS: BP 118/71; PULSE 83; RESP 17; TEMP 36.5; O2SAT 98; BMI 28.5
--- NOTE | 2024-04-04 18:38 | DI.US.S_ITS ---
PROCEDURE: US PERIPH VENOUS LOW EXTREM RT INDICATIONS: ankle and foot swelling post TECHNIQUE: Real-time imaging, as well as color and pulse Doppler interrogation, were performed of the lower extremity deep veins from the inguinal ligament to the popliteal fossa, with documentation of the visualized calf veins. COMPARISON: None. FINDINGS: The common femoral, femoral, popliteal, and the visualized calf veins are normally compressible, and free of intraluminal thrombus. Color and pulse Doppler demonstrate normal phasic intraluminal flow. There is normal augmentation response to distal compression maneuver. IMPRESSION: No findings of lower extremity deep venous thrombosis. Dictated by: Deion Barahona M.D. on 04/04/2024 at 19:21 Approved by: Deion Barahona M.D. on 04/04/2024 at 19:21
--- NOTE | 2024-04-04 20:31 | ED_ITS ---
HPI - Extremity Problem General Chief complaint: Extremity Problem,Nontraumatic Stated complaint: post partem/right swollen foot/ankle Time Seen by Provider: 04/04/24 18:37 Source: patient and family Mode of arrival: Family Vehicle History of Present Illness HPI Narrative: 28-year-old female now day 3, today had right leg pain without swelling, contacted her primary provider, advised to come in for leg vascular venous ultrasound screening for blood clot. No fevers or chills. No redness or streaking. No swelling to the calf or thigh. No shortness of breath or chest discomforts. She is having lochia rubra, no abdominal discomfort. No history of blood clots prior. No injury or new activities. Related Data Home Medications Medication Instructions Recorded Confirmed Bacillus coagulans 250 million 2 cell PO PRN PRN gut health 10/15/23 04/01/24 cell chewable tablet (Digestive Advantage Probiotic Gummy) docusate sodium 100 mg capsule 100 mg PO DAILY 10/15/23 04/01/24 magnesium carb,citrate,oxide See Rx Instructions .Route .COMPLEX 10/15/23 04/01/24 (Magnesium Complex) polyethylene glycol 3350 17 17 g PO DAILY 10/15/23 04/01/24 gram/dose oral powder (Miralax) vitamin-ferrous sulfate See Rx Instructions .Route .COMPLEX 10/15/23 04/01/24 27 mg iron-folic acid 0.8 mg tablet ondansetron 8 mg disintegrating 8 mg PO 3XD 10/28/23 04/01/24 tablet Previous Rx's Medication Instructions Recorded glucometer #1 ea 12/27/23 sharps container #1 ea 12/27/23 glucose test strips #240 ea 02/12/24 hydroxyzine pamoate 25 mg capsule 25 mg PO BEDTIME PRN for anxiety 03/16/24 (Vistaril) #30 caps lancet #240 ea 03/17/24 amoxicillin 875 mg-potassium 1 tab PO BID #14 tabs 03/30/24 clavulanate 125 mg tablet acetaminophen 325 mg tablet 650 mg (2 x 325 mg) PO Q6HR PRN 04/02/24 Pain, Mild (1-3) 7 days #60 tabs ibuprofen 600 mg tablet 600 mg PO Q6HR PRN Pain, Mild 04/02/24 (1-3) 7 days #60 tabs Allergies Allergy/AdvReac Type Severity Reaction Status Date / Time Sulfa (Sulfonamide Allergy Mild Hives Verified 03/30/24 16:40 Antibiotics) [SULFA (SULFONAMIDE ANTIBIOTICS)] Review of Systems Review of Systems Narrative: see HPI Patient History Medical History (Updated 04/04/24 @ 20:42 by Norm Vazquez MD) Gestational diabetes Fibroadenoma of left breast complicated by intrauterine device (IUD) (~06/2022) Surgical History (Updated 12/01/23 @ 20:11 by Syeda Aviles) Anesthesia [place] teeth extracted (~2013) History of tonsillectomy and adenoidectomy (~1999) History of breast biopsy History of dilation and curettage (~07/2022) Family History (Updated 12/01/23 @ 20:13 by Syeda Aviles) Mother Breast cancer Grandfather Melanoma Stroke Cancer Grandmother Diabetes mellitus ALS (amyotrophic lateral sclerosis) Father Prostate cancer Grandmother No problems noted. Grandfather Alcoholism Liver failure Social History marital status: number of children: 0 household members: spouse lives independently: Yes caregiver/support person: No housing: house pets and animals: Yes (dogs) education level: master's degree occupational status: employed current occupational exposures/hazards: No special aura needs: No travel history: recent seatbelt use: always helmet use: Yes water heater temp set < 120 deg: Yes working smoke detector in home: Yes fire extinguisher in home: Yes carbon monox detector in home: Yes firearms in home: Yes firearms unloaded and locked: Yes do you feel safe at home: Yes Smoking Status: Never smoker second hand exposure: No alcohol intake: former substance use type: does not use during the past year weight has: remained stable well-balanced diet: daily or most days daily servings fruits/ve or more times/day caffeine: No Type(s) of exercise: walking Smoking Status: Never smoker alcohol intake frequency: 0-2 drinks per day Substance Use Type: does not use Exam Narrative Exam Narrative: GENERAL: Well-developed patient, in mild distress. HEAD: Atraumatic. Normocephalic. EYES: Pupils equal round and reactive. Extraocular motions intact. No scleral icterus. No injection or drainage. ENT: Nose without bleeding, purulent drainage. Throat without erythema, tonsillar hypertrophy or exudate. Airway patent. NECK: Trachea midline. Non tender CARDIOVASCULAR: Regular rate and rhythm without murmurs, gallops, or rubs. RESPIRATORY: Clear to auscultation. Breath sounds equal bilaterally. No wheezes, rales, or rhonchi. GASTROINTESTINAL: Abdomen soft, non-tender, nondistended. EXTREMITIES: Right lower extremity calf and thigh symmetrical to left asymptomatic side. No warmth or redness or cords. Homans negative. Good distal pulse and cap refill. No skin lesions or erythema, no skin rashes. BACK: Nontender without deformity or crepitance. No flank tenderness. NEURO: AOx3. Motor functions grossly nonfocal SKIN: No rash or erythema of visible areas Initial Vital Signs Initial Vital Signs: Vital Signs Temperature 97.7 F 04/04/24 17:52 Pulse Rate 83 04/04/24 17:52 Respiratory Rate 17 04/04/24 17:52 Blood Pressure 118/71 04/04/24 17:52 Pulse Oximetry 98 04/04/24 17:52 Oxygen Delivery Method Room Air 04/04/24 17:52 Course Orders Ordered: ED Orders 04/04/24 18:38 US perip venous low extrem rt Stat Vital Signs Vital signs: Vital Signs - 8 hr 04/04/24 17:52 Temperature 97.7 F Pulse Rate 83 Respiratory Rate 17 Blood Pressure 118/71 Pulse Oximetry 98 Oxygen Delivery Method Room Air MDM - Extremity (Nontraumatic) Imaging Data Ultrasound lower extremity Doppler: Radiologist's Impression: [address] [address] Ultrasound Report Signed Patient: Cynthia Booker MR#: [id number] : 1995 Acct:[id number] Age/Sex: 28 / F Date of Service: 04/04/24 Loc: ED Accession Number: [id number] Procedure: US periph venous low extrem rt Ordering Provider: Priscilla Lan MD PROCEDURE: US PERIPH VENOUS LOW EXTREM RT INDICATIONS: ankle and foot swelling post TECHNIQUE: Real-time imaging, as well as color and pulse Doppler interrogation, were performed of the lower extremity deep veins from the inguinal ligament to the popliteal fossa, with documentation of the visualized calf veins. COMPARISON: None. FINDINGS: The common femoral, femoral, popliteal, and the visualized calf veins are normally compressible, and free of intraluminal thrombus. Color and pulse Doppler demonstrate normal phasic intraluminal flow. There is normal augmentation response to distal compression maneuver. IMPRESSION: No findings of lower extremity deep venous thrombosis. Dictated by: Deion Barahona M.D. on 04/04/2024 at 19:21 Approved by: Deion Barahona M.D. on 04/04/2024 at 19:21 [facility] Narrative Medical decision making narrative: day 3 with atraumatic right calf discomfort, no swelling on exam, negative Homans, no redness or streaking. Afebrile, sirs screen negative. Ultrasound vascular study was ordered from triage, this was performed, and negative for DVT. We did discuss if her symptoms is persistent next 2-3 days then repeat ultrasound might be required to see if there is demonstrable clot not evident today. Otherwise continue Tylenol and or Motrin as planned. Follow up with your PCP early this week. Return precautions discussed. Home with family Discharge Plan Departure Patient Disposition: Home Clinical Impression: Pain of right calf Activity Restrictions/Additional Instructions: Right calf pain atraumatic, day 3. Increase wrist for blood clot formation. Ultrasound vascular study was ordered from triage, was performed, negative for deep vein thrombosis, and also no mention of any superficial vein thrombosis. In the distal area this can be difficult to see sometimes if not in the deep system. If symptoms persist in the next 2-3 days sometimes a repeat ultrasound if necessary. No obvious fever injury patterns, reassuring examination, does not seem apparent cellulitis or infection at this time, hold antibiotics for now. Take Tylenol or Motrin as you are already doing. Recheck symptoms in the next 2-3 days with your regular provider. If increasing pain or any shortness of breath or chest discomfort, return for further evaluation to this/nearest emergency department. Prescriptions: No Action ondansetron 8 mg tablet,disintegrating 8 mg PO 3XD hydroxyzine pamoate [Vistaril] 25 mg capsule 25 mg PO BEDTIME PRN (Reason: for anxiety ) Qty: 30 0RF amoxicillin-pot clavulanate 875-125 mg tablet 1 tab PO BID Qty: 14 0RF (DME) sharps container See Rx Instructions .ROUTE .MEDSUPPLY Qty: 1 1RF Rx Instructions: for glucose supplies (DME) glucometer See Rx Instructions .Route .MEDSUPPLY Qty: 1 0RF Rx Instructions: test blood sugars 4 (DME) glucose test strips See Rx Instructions .ROUTE .MEDSUPPLY Qty: 240 4RF Rx Instructions: to test 4 times daily (DME) lancet See Rx Instructions .ROUTE .MEDSUPPLY Qty: 240 2RF Rx Instructions: to test glucose 4 times daily vit-ferrous sulfat-FA 27 mg iron- 0.8 mg tablet See Rx Instructions .ROUTE .COMPLEX Rx Instructions: per provider order Magnesium Complex 300 mg magnesium tablet See Rx Instructions .ROUTE .COMPLEX Rx Instructions: per provider order docusate sodium 100 mg capsule 100 mg PO DAILY Digestive Advantage Prob Gummy 250 million cell tablet,chewable 2 cell PO PRN PRN (Reason: gut health ) Rx Instructions: per provider order polyethylene glycol 3350 [Miralax] 17 gram/dose powder 17 g PO DAILY acetaminophen 325 mg Tablet 650 mg PO Q6HR PRN (Reason: Pain, Mild (1-3)) 7 Days Qty: 60 0RF ibuprofen 600 mg Tablet 600 mg PO Q6HR PRN (Reason: Pain, Mild (1-3)) 7 Days Qty: 60 0RF Referrals: Fatou Larose MD [Primary Care Provider] - Stand Alone Forms: Patient Portal/API
[2024-04-04 20:46] VITALS: BP 121/72; PULSE 68; O2SAT 98
== END 2024-04-04 20:47 | disposition home or self-care (01) ==
PROVIDERS: Emergency Provider Emergency Medicine; PCP Family Medicine
DX: M79.604 Pain in right leg (principal)
CPT/HCPCS: 93971; 99281; 99283

== ENCOUNTER → 2024-05-15 07:45 | Outpatient (CLI) | payer OTHER, SELFPAY ==
[2024-05-15 08:42] LABS: Glucose Fasting 90 mg/dL (70-100)
[2024-05-15 11:03] LABS: Glucose 1 Hour 117 mg/dL (70-170)
[2024-05-15 14:19] LABS: Glucose 2 Hour 68 mg/dL (70-140); Glucose Tol Interpretation INTERPRETATION
== END ==
PROVIDERS: PCP Family Medicine; Referring Provider Family Medicine; Visit Provider Family Medicine
DX: O24.419 Gestational diabetes mellitus in pregnancy, unspecified control (principal)
CPT/HCPCS: 36415; 82951; 82952